=== PATIENT | female | born 1995 | race Caucasian/White ===

== ENCOUNTER 2019-04-03 17:00 | Emergency (ER) | payer OTHER ==
[2019-04-03 17:07] VITALS: BP 117/87; PULSE 60; TEMP 97.8; BMI 23.4
--- NOTE | 2019-04-03 17:23 | PDOC ---
Documentation entered by Santos Goodrich SCRIBE, acting as scribe for Miquel Elizondo MD. Miquel Elizondo MD: This documentation has been prepared by the Joleen salguero Nirvannie, SCRIBE, under my direction and personally reviewed by me in its entirety. I confirm that the documentation accurately reflects all work, treatment, procedures, and medical decision making performed by me. History of Present Illness - General Chief Complaint: Injury Stated Complaint: HEAD INJURY, HEALING LAC Time Seen by Provider: 04/03/19 17:02 History Source: Patient Exam Limitations: No Limitations - History of Present Illness Initial Comments: 04/03/19 17:13 The patient is a 23 year old female, with no significant past medical history, who presents to the emergency department s/p kick to the head on Thursday for a wound check. As per patient, she was at an away game yesterday at which time she tackled a fellow player and said player kicked her on the left side of her head. She endorses immediate bleeding and pain to the affected area. The medic at the game allegedly washed the wound with water then glued it. Patient notes she came to the ER for wound evaluation and notes her only complaint is discomfort to the affected area. She denies any changes in strength or sensation. She denies any loss of consciousness, gait ataxia, lightheadedness, dizziness, headache, nausea, or vomiting. She denies recent chest pain or shortness of breath. She denies any swelling or purulent discharge to the wound. Allergies: NKDA Past surgical history: None reported. Social history: Social alcohol usage. Nonsmoker. Denies recreational drug use. Is this a multiple visit Asthma Patient?: No Past History - Past Medical History Allergies/Adverse Reactions: Allergies Allergy/AdvReac Type Severity Reaction Status Date / Time No Known Allergies Allergy Verified 04/03/19 17:00 Home Medications: Ambulatory Orders NK [No Known Home Medication] 04/03/19 COPD: No - Psycho Social/Smoking Cessation Hx Smoking History: Never smoked Have you smoked in the past 12 months: No Information on smoking cessation initiated: No Hx Alcohol Use: (occasional) Review of Systems - Review of Systems Able to Perform ROS?: Yes Constitutional: No: Symptoms Reported, See HPI, Chills, Diaphoresis, Fever, Loss of Appetite, Malaise, Night Sweats, Weakness, Weight Stable, Unintentional Wgt. Loss, Unexplained wgt Loss, Other HEENTM: Yes: Other (Laceration to the left scalp.). No: Symptoms Reported, See HPI, Eye Pain, Blurred Vision, Tearing, Recent change in vision, Double Vision, Cataracts, Ear Pain, Ocular Prothesis, Ear Discharge, Nose Pain, Nose Congestion , Tinnitus, Nose Bleeding, Hearing Loss, Throat Pain, Throat Swelling, Mouth Pain, Dental Problems, Difficulty Swallowing, Mouth Swelling Respiratory: No: Symptoms reported, See HPI, Cough, Orthopnea, Shortness of Breath, SOB with Exertion, SOB at Rest, Stridor, Wheezing, Productive cough, Hemoptysis, Other Cardiac (ROS): No: Symptoms Reported, See HPI, Chest Pain, Edema, Irregular Heart Rate, Lightheadedness, Palpitations, Syncope, Chest Tightness, Other ABD/GI: No: Symptoms Reported, See HPI, Abdominal Distended, Abd. Pain w/ defecation, Blood Streaked Bowels, Constipated, Diarrhea, Difficulty Swallowing , Nausea, Poor Appetite, Poor Fluid Intake, Rectal Bleeding, Vomiting, Indigestion, Abdominal cramping, Tarry Stools, Other : No: Symptoms Reported, See HPI, Burning, Dysuria, Discharge, Frequency, Flank Pain, Hematuria, Incontinence, Pain, Urgency, Testicular Mass, Testicular Swelling, Lesions, Testicular Pain, Other Musculoskeletal: No: Symptoms Reported, See HPI, Back Pain, Gout, Joint Pain, Joint Swelling, Muscle Pain, Muscle Weakness, Neck Pain, Joint Stiffness, Other Integumentary: No: Symptoms Reported, See HPI, Bruising, Change in Color, Change in Hair/Nails, Dryness, Erythema, Flushing, Lesions, Lumps, Pallor, Pruritus, Rash, Sweating, Other Neurological: No: Symptoms reported, See HPI, Headache, Numbness, Paresthesia, Pre-Existing Deficit, Seizure, Tingling, Tremors, Weakness, Unsteady Gait, Ataxia, Dizziness, Other Psychiatric: No: Anxiety, Depression, Frequent Crying, Stressors, Sleep Pattern Change, Emotional Problems, Mood Swings, Change in Appetite, Other Endocrine: No: Symptoms Reported, See HPI, Excessive Sweating, Flushing, Intolerance to Cold, Intolerance to Heat, Increased Hunger, Increased Thirst, Increased Urine, Unexplained Weight Gain, Unexplained Weight Loss, Change in Weight, Other Hematologic/Lymphatic: No: Symptoms Reported, See HPI, Anemia, Blood Clots, Easy Bleeding, Easy Bruising, Bleeding Diathesis, Lymph Node Abnormalities, Swollen Glands, Other All Other Systems: Reviewed and Negative *Physical Exam - Vital Signs Last Vital Signs Temp Pulse Resp BP Pulse Ox 97.8 F 60 18 117/87 100 04/03/19 17:00 04/03/19 17:00 04/03/19 17:00 04/03/19 17:00 04/03/19 17:00 - Physical Exam General Appearance: Yes: Nourished, Appropriately Dressed HEENT: positive: EOMI, ANIBAL, Normal Voice, Other (Small scab area with no swelling or echymoisis to left parietal area. No sign of infection or redness noted. Mild tenderness to touch.) Neck: positive: Trachea midline, Normal Thyroid, Supple (no spinous process tenderness full ROM). negative: Tender, Rigid Respiratory/Chest: positive: Lungs Clear, Normal Breath Sounds Cardiovascular: positive: Regular Rhythm, Regular Rate, S1, S2. 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 II-XII NML intact, Fully Oriented, Alert, Normal Mood/ Affect, Normal Response, Motor Strength 5/5 ED Treatment Course - ADDITIONAL ORDERS Additional order review: 04/03/19 17:20 Pt with small wound to left parietal area with no LOC Risks and benefits discussed with pt, will herbert doff on CT head No headache, only mild pain to wound Head injury handout Keep clean, Tylenol, rest If worsen return to ER Discharge - Discharge Information Problems reviewed: Yes Clinical Impression/Diagnosis: Head injury Qualifiers: Encounter type: initial encounter Qualified Code(s): S09.90XA - Unspecified injury of head, initial encounter Condition: Stable Disposition: HOME - Admission No - Follow up/Referral - Patient Discharge Instructions Patient Printed Discharge Instructions: DI for Closed Head Injury Additional Instructions: Ice, Tylenol, rest If worsen return to ER for CT head Head injury handout given - Post Discharge Activity
[2019-04-03] MEDS ORDERED: ACETAMINOPHEN 325 MG TABLET (FP) ONE (17:28)
[2019-04-03] MEDS ORDERED: ACETAMINOPHEN 325 MG TABLET (FP) PO ONE (17:28)
== END 2019-04-03 17:35 | disposition home or self-care (01) ==
LOC: FER 17:00
DX: Z48.00 Encounter for change or removal of nonsurgical wound dressing (principal); Y93.9 Activity, unspecified; Y92.9 Unspecified place or not applicable; S09.90XD Unspecified injury of head, subsequent encounter
CPT/HCPCS: 99282-25

== ENCOUNTER 2019-04-12 13:13 | Emergency (ER) | payer OTHER ==
[2019-04-12 13:17] VITALS: BP 107/65; PULSE 100; TEMP 98; BMI 23.4
--- NOTE | 2019-04-12 13:18 | PDOC ---
Rapid Medical Evaluation Time Seen by Provider: 04/12/19 13:14 Medical Evaluation: Allergies Allergy/AdvReac Type Severity Reaction Status Date / Time No Known Allergies Allergy Verified 04/03/19 17:00 04/12/19 13:14 CC: left knee pain x3 days after playing rugby PE: multiple bruises present to left lower leg Orders: xray The patient will proceed to the ER for continued Evaluation. Discharge Disposition - Diagnosis Left knee pain - Referrals - Patient Instructions - Post Discharge Activity
--- NOTE | 2019-04-12 13:55 | PDOC ---
History of Present Illness - General Chief Complaint: Injury Stated Complaint: INJURY Time Seen by Provider: 04/12/19 13:14 - History of Present Illness Initial Comments: 04/12/19 13:53 23-year-old female without comorbidities presents for evaluation of left knee pain after falling on her knee while playing rugby yesterday. She had a prior ACL reconstruction done on the ipsilateral knee Past History - Past Medical History Allergies/Adverse Reactions: Allergies Allergy/AdvReac Type Severity Reaction Status Date / Time No Known Allergies Allergy Verified 04/12/19 13:17 Home Medications: Ambulatory Orders NK [No Known Home Medication] 04/03/19 COPD: No - Psycho Social/Smoking Cessation Hx Smoking History: Never smoked Have you smoked in the past 12 months: No Hx Alcohol Use: (occasional) Review of Systems - Review of Systems Musculoskeletal: Yes: Joint Pain *Physical Exam - Vital Signs Last Vital Signs Temp Pulse Resp BP Pulse Ox 98 F 100 H 18 107/65 98 04/12/19 13:14 04/12/19 13:14 04/12/19 13:14 04/12/19 13:14 04/12/19 13:14 - Physical Exam Comments: 04/12/19 13:53 Multiple superficial abrasions and bruises on the left knee. Extensor mechanism is intact however weak. Normal skin color temperature otherwise no indication of infection. Range of motion 0-90 with pain at terminal flexion. No instability or gross sensorimotor deficits right anterior medial joint line tenderness thighs and calves are soft and nontender neurovascular intact Medical Decision Making - Medical Decision Making 04/12/19 13:54 X-rays left knee show no evidence of fracture trauma or destructive process. ACL tunnel is well visualized Discharge - Discharge Information Problems reviewed: Yes Clinical Impression/Diagnosis: Left knee pain, Contusion of left knee Condition: Stable Disposition: HOME - Admission No - Follow up/Referral Referrals: Jack Godfrey DO [Staff Physician] - - Patient Discharge Instructions Additional Instructions: He may weight-bear as tolerated with the knee brace you came in here with as well as crutches. Tylenol and Motrin as directed for pain. Return to the emergency room for worsening symptoms. Without fail, please follow-up with orthopedic surgery in 1 to 2 days for further evaluation and treatment options. - Post Discharge Activity
== END 2019-04-12 15:01 | disposition home or self-care (01) ==
LOC: JERFT 13:13
DX: S80.02XA Contusion of left knee, initial encounter (principal); W18.39XA Other fall on same level, initial encounter; Y93.63 Activity, rugby; Y92.328 Other athletic field as the place of occurrence of the external cause; Y99.8 Other external cause status
CPT/HCPCS: 73562-TC-LT-FY; 99281-25

== ENCOUNTER 2020-04-21 15:56 | Emergency (ER) | payer OTHER ==
[2020-04-21 16:00] VITALS: BP 137/73; PULSE 93; TEMP 98.8; BMI 22.7
[2020-04-21] MEDS ORDERED: ONDANSETRON *ODT* 4 MG TABLET SL ONE (16:30)
[2020-04-21] MEDS ORDERED: ONDANSETRON *ODT* 4 MG TABLET ONE (16:34)
== END 2020-04-21 16:41 | disposition home or self-care (01) ==
LOC: FER 15:56
DX: S09.90XA Unspecified injury of head, initial encounter (principal)
CPT/HCPCS: 99283-25; Q0162

== ENCOUNTER 2020-05-17 12:33 | Emergency (ER) | payer OTHER ==
[2020-05-17 12:37] VITALS: BP 122/76; PULSE 83; TEMP 98.6; BMI 22.7
[2020-05-17 13:30] LABS: HCG,QUALITATIVE URINE Negative
[2020-05-17] MEDS ORDERED: AZITHROMYCIN 500 MG TABLET PO ONE (14:08)
[2020-05-17] MEDS ORDERED: AZITHROMYCIN 500 MG TABLET ONE (14:35)
== END 2020-05-17 14:50 | disposition home or self-care (01) ==
LOC: FER 12:33
DX: Z20.2 Contact with and (suspected) exposure to infections with a predominantly sexual mode of transmission (principal); N89.8 Other specified noninflammatory disorders of vagina
CPT/HCPCS: 36415; 81003; 84703; 87086; 87491; 87591; 87661; 99284-25

== ENCOUNTER 2020-08-15 21:35 | Emergency (ER) | payer OTHER ==
[2020-08-15 21:46] VITALS: BP 131/78; PULSE 90; TEMP 98.2; BMI 20.7
[2020-08-15] MEDS ORDERED: FLUCONAZOLE 50 MG TABLET PO ONE (21:57)
[2020-08-15] MEDS ORDERED: FLUCONAZOLE 150 MG TABLET PO ONE (22:06)
[2020-08-15 22:57] LABS: EPITHELIAL CELLS MODERATE /hpf
== END 2020-08-15 22:50 | disposition home or self-care (01) ==
LOC: FER 21:35
DX: B37.3 Candidiasis of vulva and vagina (principal); R30.0 Dysuria
CPT/HCPCS: 36415; 81003; 81015; 84703; 87086; 87491; 87591; 99283-25

== ENCOUNTER 2021-05-22 12:07 | Emergency (ER) | payer OTHER ==
[2021-05-22 12:22] VITALS: BMI 22.7
[2021-05-22] MEDS ORDERED: ACETAMINOPHEN 325 MG TABLET (FP) PO ONE (12:22)
[2021-05-22] MEDS ORDERED: ACETAMINOPHEN 325 MG TABLET (FP) ONE (12:30)
[2021-05-22 13:24] VITALS: BP 92/43; PULSE 87; TEMP 99.4
== END 2021-05-22 13:40 | disposition home or self-care (01) ==
LOC: FER 12:07
DX: U07.1 COVID-19 (principal)
CPT/HCPCS: 87651; 99283-25; C9803; U0003; U0005

== ENCOUNTER 2021-09-07 19:48 | Emergency (ER) | payer OTHER ==
[2021-09-07] MEDS ORDERED: LIDOCAINE 5% TOPICAL PATCH TP ONE (19:53)
[2021-09-07] MEDS ORDERED: ACETAMINOPHEN 325 MG TABLET (FP) PO ONE (19:54)
[2021-09-07] MEDS ORDERED: LIDOCAINE 5% TOPICAL PATCH ONE (19:59)
[2021-09-07] MEDS ORDERED: ACETAMINOPHEN 325 MG TABLET (FP) ONE (19:59)
[2021-09-07 20:02] VITALS: BP 124/75; PULSE 90; TEMP 98; BMI 22.8
[2021-09-07] MEDS ORDERED: LIDOCAINE PATCH REMOVAL MC SCH (22:00)
== END 2021-09-07 22:03 | disposition home or self-care (01) ==
LOC: FER 19:48
DX: M62.838 Other muscle spasm (principal)
CPT/HCPCS: 73030-TC-RT-FY; 99283-25

== ENCOUNTER 2022-04-04 11:43 | Emergency (ER) | payer OTHER ==
[2022-04-04 11:49] VITALS: BP 104/77; PULSE 91; RESP 18; TEMP 97.9; BMI 22.7
[2022-04-04] MEDS ORDERED: KETOROLAC TROMETHAMINE 30 MG/1 ML VIAL IM ONE (12:17)
[2022-04-04] MEDS ORDERED: KETOROLAC TROMETHAMINE 30 MG/1 ML VIAL ONE (12:19)
== END 2022-04-04 12:49 | disposition home or self-care (01) ==
LOC: JERFT 11:43
PROC: 3E0233Z Introduction of Anti-inflammatory into Muscle, Percutaneous Approach (ICD-10-PCS; principal; 2022-04-04)
DX: S80.02XA Contusion of left knee, initial encounter (principal)
CPT/HCPCS: 73562-TC-LT-FY; 99284-25

== ENCOUNTER 2022-09-17 14:58 | Emergency (ER) | payer OTHER ==
[2022-09-17] MEDS ORDERED: FLUCONAZOLE 150 MG TABLET PO ONE ×2 (15:44→15:54)
[2022-09-17 15:48] VITALS: BP 121/62; PULSE 96; RESP 18; TEMP 98.6; BMI 24.2
[2022-09-17 16:56] LABS: HCG,QUALITATIVE URINE Negative
== END 2022-09-17 16:06 | disposition home or self-care (01) ==
LOC: FER 14:58
DX: B37.31 Acute candidiasis of vulva and vagina (principal); N94.819 Vulvodynia, unspecified; L25.9 Unspecified contact dermatitis, unspecified cause
CPT/HCPCS: 36415; 81003; 81015; 84703; 87086; 87110; 87491; 87591; 99283-25

== ENCOUNTER 2022-09-20 01:49 | Emergency (ER) | payer OTHER ==
[2022-09-20 01:54] VITALS: BP 131/81; PULSE 87; RESP 16; TEMP 98.6; BMI 24.2
[2022-09-20] MEDS ORDERED: diphenhydrAMINE HCL 25 MG CAPSULE (FP) PO ONE (02:13)
== END 2022-09-20 02:24 | disposition home or self-care (01) ==
LOC: FER 01:49
DX: B37.31 Acute candidiasis of vulva and vagina (principal); L24.5 Irritant contact dermatitis due to other chemical products
CPT/HCPCS: 99283-25

== ENCOUNTER 2023-07-31 02:20 | Emergency (ER) | payer OTHER ==
[2023-07-31 02:30] VITALS: BP 140/87; PULSE 89; RESP 16; TEMP 98.2; BMI 24.2
== END 2023-07-31 02:38 | disposition home or self-care (01) ==
LOC: FER 02:20
DX: R06.9 Unspecified abnormalities of breathing (principal); R05.9 Cough, unspecified; J06.9 Acute upper respiratory infection, unspecified
CPT/HCPCS: 99282-25

== ENCOUNTER 2023-08-01 21:19 | Emergency (ER) | payer OTHER ==
[2023-08-01 21:34] VITALS: BP 130/83; PULSE 81; RESP 16; TEMP 98.5; BMI 24.2
[2023-08-01] MEDS ORDERED: predniSONE 20 MG TABLET (UD) ONE (21:41)
[2023-08-01] MEDS ORDERED: diphenhydrAMINE HCL 50 MG CAPSULE ONE (21:41)
[2023-08-01] MEDS: predniSONE 20 MG TABLET (UD) PO ONE (21:42)
[2023-08-01] MEDS: diphenhydrAMINE HCL 50 MG CAPSULE PO ONE (21:42)
== END 2023-08-01 23:04 | disposition home or self-care (01) ==
LOC: FER 21:19
DX: L50.9 Urticaria, unspecified (principal); L29.9 Pruritus, unspecified
CPT/HCPCS: 99283-25